=== PATIENT | male | born 1965 | race Hispanic/Latino ===

== ENCOUNTER 2019-06-18 16:41 | Inpatient (IN) | payer MEDICARE, BC ==
[~2019-06-18] VITALS: Ht 185.4 cm; Wt 98.6 kg
[2019-06-18] MEDS ORDERED: NITROGLYCERIN 1GM/1 INCH PACKET TD ONE (17:37)
[2019-06-18 17:42] LABS: BASOPHILS % (AUTO) 0.5 % (0.0-5.0); EOSINOPHILS % (AUTO) 1.2 % (0.0-8.0); MEAN CORPUSCULAR HEMOGLOBIN 32.9 pg (27.0-33.0); MEAN CORPUSCULAR HGB CONC 34.2 g/dL (32.0-36.0); MEAN CORPUSCULAR VOLUME 96.1 fL (79-99); MONOCYTES % (AUTO) 7.4 % (3.0-13.0); NEUTROPHILS % (AUTO) 60.9 % (40.0-77.0); NUCLEATED RED BLOOD CELLS 0.1 % (0.0-0.19); PLATELET COUNT (AUTO) 204 K/uL (130-400); RED BLOOD CELL COUNT(AUTO) 4.99 MIL/uL (4.50-6.20); RED CELL DISTRIBUTION WIDTH 12.8 % (11.0-15.5); WHITE BLOOD COUNT (AUTO) 11.4 K/uL (4.8-10.8)
[2019-06-18 18:04] LABS: CREATININE 1.4 mg/dL (0.5-1.5); INR 1.02 (0.85-1.15); PARTIAL THROMBOPLASTIN TIME 30.8 SEC (26.3-35.5); POTASSIUM 3.9 mmol/L (3.5-5.1); PROTHROMBIN TIME 10.7 SEC (9.6-11.6)
[2019-06-18 18:08] LABS: ALBUMIN 3.8 g/dL (3.5-5.0); BILIRUBIN,TOTAL 0.7 mg/dL (0.2-1.0); TOTAL PROTEIN, SERUM 7.9 g/dL (6.0-8.3)
[2019-06-18 19:00] LABS: AMPHET/METH SCREEN,URINE NEGATIVE (NEGATIVE); BARBITURATE SCREEN, URINE NEGATIVE (NEGATIVE); BENZODIAZEPINES SCREEN,URINE NEGATIVE (NEGATIVE); CANNABINOID SCREEN,URINE NEGATIVE (NEGATIVE); COCAINE SCREEN,URINE NEGATIVE (NEGATIVE); OPIATE SCREEN,URINE NEGATIVE (NEGATIVE); PHENCYCLIDINE SCREEN,URINE NEGATIVE (NEGATIVE)
[2019-06-18] MEDS ORDERED: SODIUM CHLORIDE 0.9% 1000ML 1,000 ML IV SCH (19:18)
[2019-06-18] MEDS ORDERED: MORPHINE SULFATE 4 MG/1ML SYG IV PRN (19:30)
[2019-06-18] MEDS ORDERED: HYDRALAZINE HCL 20 MG/ML VIAL IV PRN (19:30)
[2019-06-18 19:53] LABS: CHOLESTEROL 244 mg/dL (<200); HDL CHOLESTEROL 46 mg/dL (29-71); HEMOGLOBIN A1C 5.4 % (4.0-6.0); LDL DIRECT 179 mg/dL (0-99); TRIGLYCERIDES 103 mg/dL (30-200)
[2019-06-18] MEDS: ATORVASTATIN CALCIUM 40 MG TABLET PO SCH (21:15)
[2019-06-18] MEDS ORDERED: ATORVASTATIN CALCIUM 40 MG TABLET ONE (21:40)
[2019-06-18 21:45] VITALS: BP 112/77
[2019-06-18] MEDS: METOPROLOL TARTRATE 25 MG TAB PO SCH (23:17)
[2019-06-18] MEDS: FAMOTIDINE/PF 20 MG/2 ML VIAL IV SCH (23:17)
[2019-06-18 23:25] VITALS: BP 99/57
[2019-06-19] VITALS (7 sets, daily range): BP systolic 92–121; BP diastolic 51–70
[2019-06-19] MEDS: ENOXAPARIN SODIUM 100 MG/1 ML SQ SCH ×3 (03:20→20:15)
[2019-06-19 03:26] LABS: BASOPHILS % (AUTO) 0.9 % (0.0-5.0); LYMPHOCYTES % (AUTO) 31.5 % (21.0-51.0); MEAN CORPUSCULAR HGB CONC 34.4 g/dL (32.0-36.0); MONOCYTES % (AUTO) 8.5 % (3.0-13.0); NEUTROPHILS % (AUTO) 57.1 % (40.0-77.0); PLATELET COUNT (AUTO) 207 K/uL (130-400); RED BLOOD CELL COUNT(AUTO) 4.89 MIL/uL (4.50-6.20); RED CELL DISTRIBUTION WIDTH 12.5 % (11.0-15.5); WHITE BLOOD COUNT (AUTO) 13.1 K/uL (4.8-10.8)
[2019-06-19 03:48] LABS: INR 0.97 (0.85-1.15); PARTIAL THROMBOPLASTIN TIME 29.7 SEC (26.3-35.5); PROTHROMBIN TIME 10.2 SEC (9.6-11.6)
[2019-06-19 04:06] LABS: TROPONIN I 14.4 ng/mL (0.00-0.06)
[2019-06-19] MEDS ORDERED: ENOXAPARIN SODIUM 100 MG/1 ML SQ SCH (09:00)
[2019-06-19] MEDS: ASPIRIN 325 MG TABLET PO SCH (09:00)
[2019-06-19] MEDS: METOPROLOL TARTRATE 25 MG TAB PO SCH ×2 (09:00→20:15)
[2019-06-19] MEDS ORDERED: IODIXANOL 320 MG/ML 100 ML VIAL ONE (10:10)
[2019-06-19] MEDS ORDERED: HEPARIN SODIUM 1000UNIT/ML 10ML VIAL ONE (10:10)
[2019-06-19] MEDS ORDERED: LIDOCAINE HCL 1% 20 ML VIAL ONE (10:10)
[2019-06-19] MEDS ORDERED: MIDAZOLAM HCL 1 MG/ML 2ML VIAL ONE (10:11)
[2019-06-19] MEDS ORDERED: FENTANYL CITRATE PF 50 MCG/1 ML 2ML VIAL ONE (10:11)
[2019-06-19] MEDS: FAMOTIDINE/PF 20 MG/2 ML VIAL IV SCH ×2 (10:28→20:14)
[2019-06-19] MEDS ORDERED: IOHEXOL 350 MG/ML 100ML INFUS..BTL IV ONE (10:29)
[2019-06-19 10:40] LABS: TROPONIN I 11.52 ng/mL (0.00-0.06)
[2019-06-19] MEDS ORDERED: BIVALIRUDIN 250 MG/VIAL IV ONE (10:44)
--- NOTE | 2019-06-19 11:20 | NUR ---
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 PHILLIP. RIGHT GROIN IS SOFT, NON-TENDER WITH NO HEMATOMA, BLEEDING NOR OOZING. PATIENT IS TO REMAIN ON BEDREST FOR 2 HOURS. SEE POST CATH ASSESSMENT. CALL LIGHT WITHIN REACH. INSTRUCTED TO CALL FOR ASSISTANCE.
[2019-06-19] MEDS ORDERED: SODIUM CHLORIDE 0.9% 1000ML 1,000 ML IV SCH (11:23)
--- NOTE | 2019-06-19 13:20 | NUR ---
BEDREST COMPLETED. SEE POST CATH ASSESSMENT. RIGHT GROIN REMAINS SOFT, NON-TENDER, NO HEMATOMA, BLEEDING, NOR OOZING.
--- NOTE | 2019-06-19 16:49 | NUR ---
cm note met with patient and states resides at home with spouse, independent with adls and ambulation. no dme. . states he drives.dc plan is back home. states no dc needs Addendum: 06/19/19 at 1650 by RODRI ANDRADE CM Amended: Links added.
[2019-06-19] MEDS: ATORVASTATIN CALCIUM 40 MG TABLET PO SCH (20:15)
[2019-06-19] MEDS: RANOLAZINE 500 MG TAB.SR.12H PO SCH (20:15)
[2019-06-20 03:00] VITALS: BP 108/70
[2019-06-20 07:52] VITALS: BP 104/75
[2019-06-20] MEDS ORDERED: CLOPIDOGREL BISULFATE 75 MG TAB PO SCH (09:00)
[2019-06-20] MEDS: ENOXAPARIN SODIUM 100 MG/1 ML SQ SCH ×2 (09:00→09:27)
[2019-06-20] MEDS: FAMOTIDINE/PF 20 MG/2 ML VIAL IV SCH ×2 (09:00→09:27)
[2019-06-20] MEDS: ASPIRIN 325 MG TABLET PO SCH (09:27)
[2019-06-20] MEDS: METOPROLOL TARTRATE 25 MG TAB PO SCH (09:27)
[2019-06-20] MEDS: RANOLAZINE 500 MG TAB.SR.12H PO SCH (09:27)
[2019-06-20] MEDS ORDERED: METO25 PO (09:54)
[2019-06-20] MEDS ORDERED: ROSU20TA31 PO (09:54)
[2019-06-20] MEDS ORDERED: CLOP75TA14 PO (09:54)
[2019-06-20] MEDS ORDERED: RANO500T2 PO (09:54)
[2019-06-20] MEDS ORDERED: AEC81 PO (09:56)
--- NOTE | 2019-06-20 12:00 | NUR ---
DISCHARGE INSTRUCTIONS GIVEN TO PATIENT. NEW PRESCRIPTION INCLUDED IN D/C PACKET. TEACH BACK METHOD USED TO EDUCATE PATIENT ON [employer] RESTRICTIONS, DIET, NEW MEDICATIONS, S/S TO MONITOR, WHEN TO CALL MD, AND F./U APPOINTMENTS. PIV REMOVED. TIP INTACT. TELE REMOVED AND RETURNED. ALL BELONGINGS PACKED. RIGHT GROIN REMAINS SOFT WITH NO HEMATOMA, BLEEDING, NOR OOZING.
[2019-06-21] MEDS ORDERED: ASPIRIN 325 MG TABLET PO SCH (09:00)
== END 2019-06-20 11:25 | disposition home or self-care (01) | DRG 281 ==
LOC: EDH 16:41 → EDHIP 19:18 → 2DH 21:50
PROVIDERS: ADMIT Hospitalist; ATTEND Hospitalist
PROC: 4A023N7 Measurement of Cardiac Sampling and Pressure, Left Heart, Percutaneous Approach (ICD-10-PCS; principal; 2019-06-19)
PROC: B2111ZZ Fluoroscopy of Multiple Coronary Arteries using Low Osmolar Contrast (ICD-10-PCS; 2019-06-19)
PROC: B2151ZZ Fluoroscopy of Left Heart using Low Osmolar Contrast (ICD-10-PCS; 2019-06-19)
PROC: B2131ZZ Fluoroscopy of Multiple Coronary Artery Bypass Grafts using Low Osmolar Contrast (ICD-10-PCS; 2019-06-19)
PROC: B41B1ZZ Fluoroscopy of Other Intra-Abdominal Arteries using Low Osmolar Contrast (ICD-10-PCS; 2019-06-19)
DX: T82.898A Other specified complication of vascular prosthetic devices, implants and grafts, initial encounter (principal); I21.4 Non-ST elevation (NSTEMI) myocardial infarction; E87.1 Hypo-osmolality and hyponatremia; Z94.0 Kidney transplant status; I25.110 Atherosclerotic heart disease of native coronary artery with unstable angina pectoris; R73.9 Hyperglycemia, unspecified; E78.00 Pure hypercholesterolemia, unspecified; E78.5 Hyperlipidemia, unspecified; I10 Essential (primary) hypertension; Z95.5 Presence of coronary angioplasty implant and graft; Z88.1 Allergy status to other antibiotic agents; Z88.8 Allergy status to other drugs, medicaments and biological substances; Z82.49 Family history of ischemic heart disease and other diseases of the circulatory system; Y71.3 Surgical instruments, materials and cardiovascular devices (including sutures) associated with adverse incidents; Y92.9 Unspecified place or not applicable
CPT/HCPCS: 36415; 71045; 80053; 80061; 80305; 82550; 83036; 83874; 83880; 84484; 85025; 85610; 85730; 93005; 93306; 93459; 99156; 99157; 99291; C1760; C1769; C1894; G0378; J0583; J1644; J1650; J2250; J3010; J3490; Q9967

== ENCOUNTER 2020-08-11 07:34 | Inpatient (IN) | payer MEDICARE ==
[~2020-08-11] VITALS: Ht 185.4 cm; Wt 99.6 kg
[~2020-08-11 07:34] MED LIST: AEC81 PO; CLOP75TA14 PO; METO25 PO; RANO500T2 PO; ROSU20TA31 PO
[2020-08-11 08:09] LABS: BASOPHILS % (AUTO) 0.6 % (0.0-5.0); EOSINOPHILS % (AUTO) 3.3 % (0.0-8.0); LYMPHOCYTES % (AUTO) 38.2 % (21.0-51.0); MEAN CORPUSCULAR HEMOGLOBIN 32.9 pg (27.0-33.0); MEAN CORPUSCULAR HGB CONC 34.5 g/dL (32.0-36.0); MEAN CORPUSCULAR VOLUME 95.3 fL (79-99); MONOCYTES % (AUTO) 9.1 % (3.0-13.0); NEUTROPHILS % (AUTO) 48.6 % (40.0-77.0); PLATELET COUNT (AUTO) 209 K/uL (130-400); RED BLOOD CELL COUNT(AUTO) 4.93 MIL/uL (4.50-6.20); RED CELL DISTRIBUTION WIDTH 12.3 % (11.0-15.5); WHITE BLOOD COUNT (AUTO) 8.1 K/uL (4.8-10.8)
[2020-08-11] MEDS ORDERED: ASPIRIN 81MG TAB.CHEW ONE (08:11)
[2020-08-11] MEDS ORDERED: ACETAMINOPHEN EXTRA STRENGTH 500 MG TABLET ONE (08:11)
[2020-08-11 08:25] LABS: INR 0.92 (0.85-1.15); PARTIAL THROMBOPLASTIN TIME 27.8 SEC (26.3-35.5)
[2020-08-11 08:36] LABS: BILIRUBIN,TOTAL 0.3 mg/dL (0.2-1.0); CREATININE 1.4 mg/dL (0.5-1.5); TOTAL PROTEIN, SERUM 8.3 g/dL (6.0-8.3)
[2020-08-11 09:00] LABS: POTASSIUM 4.4 mmol/L (3.5-5.1)
[2020-08-11] MEDS ORDERED: SODIUM CHLORIDE 0.9% 1000ML 1,000 ML IV SCH (09:10)
[2020-08-11] MEDS ORDERED: ACETAMINOPHEN 325 MG TAB PO PRN (09:15)
[2020-08-11] MEDS ORDERED: NITROGLYCERIN 0.4 MG SL TAB SL PRN (09:15)
[2020-08-11] MEDS ORDERED: LACTULOSE 20 GM/30 ML UDCUP PO PRN (09:15)
[2020-08-11] MEDS ORDERED: HYDRALAZINE HCL 20 MG/ML VIAL IV PRN (09:15)
[2020-08-11 09:19] LABS: APPEARANCE,URINE Clear (CLEAR); BILIRUBIN,URINE Negative (NEGATIVE); COLOR,URINE Yellow (YELLOW); GLUCOSE, URINE (UA) Negative (NEGATIVE); KETONES,URINE Negative (NEGATIVE); LEUKOCYTE ESTERASE ,URINE Negative (NEGATIVE); NITRATE,URINE Negative (NEGATIVE); OCCULT BLOOD,URINE Negative (NEGATIVE); PROTEIN,URINE Trace mg/dL (NEGATIVE); UROBILINOGEN,URINE 0.2 mg/dL (0.2-1.0)
[2020-08-11 09:26] LABS: AMPHET/METH SCREEN,URINE NEGATIVE (NEGATIVE); BARBITURATE SCREEN, URINE NEGATIVE (NEGATIVE); BENZODIAZEPINES SCREEN,URINE NEGATIVE (NEGATIVE); CANNABINOID SCREEN,URINE NEGATIVE (NEGATIVE); COCAINE SCREEN,URINE NEGATIVE (NEGATIVE); OPIATE SCREEN,URINE NEGATIVE (NEGATIVE); PHENCYCLIDINE SCREEN,URINE NEGATIVE (NEGATIVE)
[2020-08-11 09:32] LABS: BACTERIA,URINE Rare /HPF (None Seen); RBC,URINE 0-1 /HPF (0-1); SQUAMOUS EPITHELIAL CELL,UR Rare /HPF (0-2); WBC,URINE 0-1 /HPF (0-1)
--- NOTE | 2020-08-11 10:45 | NUR ---
GASTRIC REFLECT Addendum: 08/11/20 at 1120 by MADISON CALDERA RN RN Amended: Links added.
--- NOTE | 2020-08-11 11:17 | NUR ---
KIDNEY TRANSPLANT IN 1995 Addendum: 08/11/20 at 1120 by MADISON CALDERA RN RN Amended: Links added.
[2020-08-11] MEDS: HEPARIN SODIUM 5000UNIT/ML 1ML VIAL SQ SCH ×3 (13:27→21:00)
[2020-08-11 14:38] VITALS: BP 117/81
[2020-08-11 17:14] VITALS: BP 116/77
[2020-08-11 19:47] VITALS: BP 98/62
--- NOTE | 2020-08-11 20:10 | NUR ---
PM Assessment Received pt talking on the phone, denies discomfort. Routine assessment done, plan of care discuss, confirmed that he was informed by Chandler Lombardi that he does not think he is having a heart attack & was advise to be NPO post MN in case he will need to have a procedure like a stress test tomorrow as he was told if the Troponin won't be too elevated. I updated pt of all Troponin results & made him aware that we will notify the pharmacy laboratory technician [employer] certified network professional to see if they would like him to proceed with stress test, pt agreed. Pt also requested to have his VS & AM lab work be done together so he can sleep a little longer, arrange.IGOR Mackenzie was also made aware of current Troponin with order & carried out.
[2020-08-11] MEDS: METOPROLOL TARTRATE 25 MG TAB PO SCH (21:00)
[2020-08-11] MEDS: FAMOTIDINE/PF 20 MG/2 ML VIAL IV SCH (21:47)
[2020-08-11 23:54] VITALS: BP 117/84
[2020-08-12 04:00] VITALS: BP 111/72
[2020-08-12 05:46] LABS: BASOPHILS % (AUTO) 0.5 % (0.0-5.0); HEMATOCRIT 46.6 % (42-54); LYMPHOCYTES % (AUTO) 44.5 % (21.0-51.0); MEAN CORPUSCULAR HEMOGLOBIN 32.9 pg (27.0-33.0); MEAN CORPUSCULAR HGB CONC 34.5 g/dL (32.0-36.0); MEAN CORPUSCULAR VOLUME 95.3 fL (79-99); NEUTROPHILS % (AUTO) 41.8 % (40.0-77.0); PLATELET COUNT (AUTO) 229 K/uL (130-400); RED BLOOD CELL COUNT(AUTO) 4.89 MIL/uL (4.50-6.20); RED CELL DISTRIBUTION WIDTH 12.2 % (11.0-15.5); WHITE BLOOD COUNT (AUTO) 10.1 K/uL (4.8-10.8)
[2020-08-12 06:16] LABS: CREATININE 1.4 mg/dL (0.5-1.5); POTASSIUM 4.2 mmol/L (3.5-5.1)
[2020-08-12 07:49] VITALS: BP 128/71
[2020-08-12] MEDS: METOPROLOL TARTRATE 25 MG TAB PO SCH (08:23)
[2020-08-12] MEDS: FAMOTIDINE/PF 20 MG/2 ML VIAL IV SCH (08:41)
[2020-08-12] MEDS: HEPARIN SODIUM 5000UNIT/ML 1ML VIAL SQ SCH ×2 (08:43→14:00)
[2020-08-12] MEDS ORDERED: CETIRIZINE HCL 5 MG TABLET PO SCH (09:00)
[2020-08-12] MEDS ORDERED: ASPIRIN 325 MG TABLET PO SCH (09:00)
[2020-08-12] MEDS ORDERED: REGADENOSON 0.4 MG/5 ML PF SYG IVP SCH (11:45)
[2020-08-12 12:00] VITALS: BP 114/74
[2020-08-12 16:00] VITALS: BP 112/72
--- NOTE | 2020-08-12 19:47 | NUR ---
Patient had lexiscan, troponins negative, and pt stated he did not want to stay for cardiac to make a decision to cath him on Friday. pt does plan to follow up w/ primary doctor for next week, and will decide whether to continue with current foreclosure paralegal or choose a new one. Education provided in regards to risk factors and the need to follow up w/ the foreclosure paralegal of his choice. IV removed, no signs of bleeding noted. Witnessed by floor staff. No distress noted.
--- NOTE | 2020-08-13 10:15 | NUR ---
FELIX NOTE Pt left AMA. Per medical record review, no needs identified. Addendum: 08/13/20 at 1015 by GEORGES DEY CM Amended: Links added.
== END 2020-08-12 18:44 | disposition left against medical advice (07) | DRG 303 ==
LOC: EDH 07:34 → EDHIP 09:10 → 3CH 10:14
PROVIDERS: ADMIT Internal Medicine; ATTEND Internal Medicine
DX: I25.110 Atherosclerotic heart disease of native coronary artery with unstable angina pectoris (principal); Z94.0 Kidney transplant status; I25.810 Atherosclerosis of coronary artery bypass graft(s) without angina pectoris; I10 Essential (primary) hypertension; E78.5 Hyperlipidemia, unspecified; K21.9 Gastro-esophageal reflux disease without esophagitis; J30.2 Other seasonal allergic rhinitis; Z88.2 Allergy status to sulfonamides; Z88.8 Allergy status to other drugs, medicaments and biological substances; Z95.5 Presence of coronary angioplasty implant and graft; I25.2 Old myocardial infarction; Z79.82 Long term (current) use of aspirin; Z79.02 Long term (current) use of antithrombotics/antiplatelets; Z79.899 Other long term (current) drug therapy; Z91.19 Patient's noncompliance with other medical treatment and regimen; Z91.14 Patient's other noncompliance with medication regimen; Z82.49 Family history of ischemic heart disease and other diseases of the circulatory system
CPT/HCPCS: 36415; 71045; 78452; 80048; 80053; 80061; 80305; 81001; 82550; 84484; 85025; 85610; 85730; 93005; 93017; 96374; A9500; G0378; J1644; J2785; J3490